=== PATIENT | male | born 1970 | race Caucasian/White ===

== ENCOUNTER → 2024-03-18 15:21 | Outpatient (REF) | payer OTHER, SELFPAY | LOC: HWRAD 15:21 | PROVIDERS: ATTENDING PHYSICIAN Urology; FAMILY PHYSICIAN Family Medicine | DX: Z87.442 Personal history of urinary calculi (principal) | CPT/HCPCS: 74176 ==

== ENCOUNTER 2024-06-05 13:17 | Emergency (ER) | payer OTHER, SELFPAY ==
[2024-06-05 13:24] VITALS: BP 191/116
[2024-06-05 13:45] LABS: % Basophils 0.9 % (0-2); % Eosinophils 1.3 % (0-6); % Immature Granulocytes 0.2 % (0-0.5); % Lymphocytes 27.9 % (20.5-51.1); % Monocytes 10.2 % (1.7-9.3); % Neutrophils 59.5 % (42.2-75.2); Absolute Basophils 0.1 10^3/uL (0-0.2); Absolute Eosinophils 0.1 10^3/uL (0-0.7); Absolute Lymphocytes 1.8 10^3/uL (1.2-3.4); Absolute Monocytes 0.7 10^3/uL (0.1-0.6); Absolute Neutrophils 3.8 10^3/uL (1.4-6.5); Hematocrit 43.3 % (39.0-52.0); Hemoglobin 15.1 g/dL (13.0-18.0); Mean Corp Hgb Conc. 34.9 g/dL (33.0-37.0); Mean Corpuscular Volume 86.1 fL (80.0-94.0); Mean Platelet Volume 9.8 fL (7.4-10.4); Nucleated Red Blood Cells % 0 % (-); Platelet Count 257 10^3/uL (130-400); Red Blood Cell Count 5.03 10^6/uL (4.70-6.10); Red Cell Dist. Width 12.7 % (11.5-14.5); White Blood Cell Count 6.4 10^3/uL (4.8-10.8)
[2024-06-05 13:58] LABS: ALT (SGPT) 38 U/L (0-50); AST (SGOT) 37 U/L (17-59); Albumin 4.8 g/dl (3.5-5.0); Alkaline Phosphatase 117 U/L (38-126); Calcium 9.7 mg/dl (8.4-10.2); Carbon Dioxide 24 mmol/L (22-30); Chloride 102 mmol/L (98-107); Glucose 126 mg/dl (70-99); Potassium 4.1 mmol/L (3.5-5.1); Sodium 138 mmol/L (135-145); Total Bilirubin 0.6 mg/dl (0.2-1.3); Total Protein 7.4 g/dl (6.3-8.2); eGFR > 60.00
[2024-06-05 14:04] LABS: Blood Urea Nitrogen 18 mg/dl (9-20)
--- NOTE | 2024-06-05 17:21 | ED.GENMED ---
History of Present Illness
General
Chief Complaint: Blood Pressure Problem
Source: patient and spouse
Exam Limitations: none
Time Seen by Provider: 06/05/24 16:51
History of Present Illness
History of Present Illness:
54yoM with no significant past medical history presenting with his for evaluation of elevated blood pressure. Patient's has a blood pressure cuff at home and he randomly decided to check his blood pressure yesterday. Blood pressure was
elevated at 180/100 although he states the cough was acting 'wonky.' They decided to buy a new blood pressure cuff today and rechecked his blood pressure which was elevated at 197/119. They researched on [employer] and decided to come to the ED for
evaluation. Patient is asymptomatic at this time and denies any headache, visual changes, chest pain, shortness of breath, leg swelling. Patient was on blood pressure medication about 20 years ago. He last saw his PCP in January and blood pressure
was reportedly normal at that time.
Phy Exam
General Physical Exam
General Presentation: well appearing and no apparent distress
General age: appears stated age
General Skin: warm and dry
General Habitus: normal
General Mental: alert
ENT Exam
ENT Exam: normocephalic
Cardiovascular Exam
Cardiovascular Exam: regular rate/rhythm, no edema and no murmur
Pulmonary Exam
Pulmonary Exam: lungs clear, no respiratory distress, no rales, no crackles and no rhonchi
Neurological Exam
Neurological Exam: alert
[place] Coma Scale
Eye Opening: Spontaneous
Verbal Response: Oriented
Motor Response: Obeys Commands
GCS Total Score: 15
Skin Exam
Skin Exam: normal color and warm/dry
Psychiatric Exam
Psychiatric Exam: normal mood/affect
Course
Orders/Labs/Results
Orders:
Orders
06/05/24 13:18
EKG [Electrocardiogram (*1)] Urgent
Reason for Study: Hypertension, Benign
EKG- Treatment ONCE
06/05/24 13:34
Complete Blood Count/With Diff Urgent
Comprehensive Metabolic Panel Urgent
06/05/24 17:24
Amlodipine [Norvasc] 5 mg PO ONCE ONE
Abnormal Lab Results
06/05/24
13:34
Absolute Monos (auto) 0.7 H 10^3/uL
(0.1-0.6)
Monocytes % 10.2 H %
(1.7-9.3)
Glucose 126 H mg/dl
(70-99)
06/05/24 13:34
06/05/24 13:34
Vital Signs
Blood pressure: 177/112
Initial and Last Documented VS:
Initial Vital Signs
Temp Pulse Resp BP Pulse Ox
97.8 F 77 18 191/116 98
06/05/24 13:24 06/05/24 13:24 06/05/24 13:24 06/05/24 13:24 06/05/24 13:24
Last Documented Vital Signs
Temp Pulse Resp BP Pulse Ox
97.8 F 64 20 166/102 95
06/05/24 13:24 06/05/24 17:38 06/05/24 17:38 06/05/24 17:38 06/05/24 17:38
MDM/Problems Addressed
Differential Diagnosis Includes:
54yoM here with elevated blood pressure. He decided to check his BP yesterday and today at home which were both elevated. Currently asymptomatic without complaints. No headache, visual changes, chest pain. BP 191/116 in triage. Remainder of vitals
are normal. Exam is reassuring. Differential diagnosis includes but is not limited to: asymptomatic hypertension, hypertensive urgency
Labs and EKG obtained in triage. Labs overall unremarkable including normal renal function. No ischemic changes on EKG. Blood pressure improved to 166/102 without intervention. No signs of end organ dysfunction. No indication for hospitalization at
this time. Patient was started on 5mg amlodipine and given a 30 day supply. Patient advised to keep a BP log and f/u closely with his PCP. Strict ED return precautions discussed. He expressed understanding and is agreement with plan. He was
discharged in stable condition.
*EKG
Interpreted by ED Provider?: Yes
EKG Intrepretation Date: 06/05/24
Heart Rate: 82
Rate: normal
Rhythm: sinus
[place]: left axis deviation
Interval: normal interval
QRS Pattern: normal QRS
Ischemia: no ischemia
*Critical Care Note
Total Time (30-74mins, 75-104mins- exclusive of procedures): Not Applicable
ED Attending Note
-
Portions of this chart may have been created with voice recognition software.� Occasional wrong word or��sound alike� substitutions may have occurred due to the inherent limitations of voice recognition software.
Discharge Plan
Departure
Patient Disposition: Home (Routine Discharge)
Date of Disposition: 06/05/24
Time of Disposition: 17:25
Patient with high blood pressure during this ER visit?: Yes
Discharge Problem:
Asymptomatic hypertension
Instructions: High Blood Pressure (DC), Amlodipine
Prescriptions:
New
amlodipine 5 mg tablet
5 mg PO DAILY Qty: 30 0RF
Referrals:
Jon Tan MD [Family Provider] -
Activity Restrictions/Additional Instructions:
Take amlodipine as prescribed. Check your blood pressure once daily and keep a log.
Please call tomorrow to schedule a follow-up appointment with your family doctor. Return to the ER with any worsening symptoms, severe headache, chest pain, new visual/neurologic symptoms.
Interventions
Interventions:
*Risk Screen - Suicide Last Done: 06/05/24 13:24
*General Assessment Last Done: 06/05/24 13:24
*Neglect/Abuse Screening Last Done: 06/05/24 13:24
ED- Fall Risk Assessment Last Done: 06/05/24 17:45
*ED COVID-19 Vaccine History Last Done: 06/05/24 13:24
*Nursing Disposition Last Done: 06/05/24 17:45
ED- Cardiac Assessment Last Done: 06/05/24 17:37
ED- Neurological Assessment Last Done: 06/05/24 17:37
ED- Pulmonary Assessment Last Done: 06/05/24 17:37
Discharge Date and Time
Discharge Date/Time: 06/05/24 17:45
Print Language: DIVEHI
[2024-06-05] MEDS: NORVASC 5 MG PO (17:34)
[2024-06-05 17:37] VITALS: BMI 33.1
[2024-06-05 17:38] VITALS: BP 166/102
== END 2024-06-05 17:45 | disposition home or self-care (01) ==
LOC: EMR 13:17
PROVIDERS: Emergency Medicine; EMERGENCY PHYSICIAN Student in an Organized Health Care Education/Training Program; FAMILY PHYSICIAN Family Medicine
DX: I10 Essential (primary) hypertension (principal)
CPT/HCPCS: 99283; 80053; 85025; 93005

== ENCOUNTER 2024-06-06 22:28 | Emergency (ER) | payer OTHER, SELFPAY ==
[2024-06-06 22:33] VITALS: BP 197/136
[2024-06-06 22:36] VITALS: BMI 33.1
[2024-06-07 00:55] VITALS: BP 192/117; BP 195/120
--- NOTE | 2024-06-07 01:30 | ED.GENMED ---
History of Present Illness
General
Chief Complaint: Blood Pressure Problem
Source: patient and records
Exam Limitations: none
Time Seen by Provider: 06/07/24 00:56
Nursing documentation reviewed up to this point in time: agreed with
History of Present Illness
History of Present Illness:
54-year-old male returns with high blood pressure, seen here yesterday with high blood pressure without any symptoms EKG blood work discharged with amlodipine 5 told that he could have borderline high blood pressure previously never on meds, used
his 's blood pressure cuff around just out of curiosity found that his pressure was high took it several times in the next day or 2 continue to be high seen here yesterday in discharge, through the day continued to be 180-190/110-120
range, did have some mild headache, but no other symptoms 48 no chest pain or shortness of breath no fever or chills, took a dose of amlodipine in the ER and a dose at home drinks socially not excess non-smoker
Past History
Past History
ED Past Medical History: HTN
Social History
Tobacco: Non-smoker
Alcohol: Occasional
Drug: None
Personal:
Living: with family
Employment: Employed
Review of Systems
Review of Systems
All Other Systems: ROS reviewed and negative except as documented in HPI and ROS
Constitutional: Reports no symptoms
EENT: Reports no symptoms
Respiratory: Reports no symptoms
Cardiac: Reports no symptoms
ABD/GI: Reports no symptoms
: Reports no symptoms
Musculoskeletal: Reports no symptoms
Skin: Reports no symptoms
Neurological: Reports no symptoms
Phy Exam
Physical Exam
Physical Exam:
Physical Exam
General: no apparent distress, not acutely ill
Neck: No jaundice
Heart: Regular
Lungs: no acute respiratory distress. clear bilaterally
Neuro: alert and oriented. no focal neurological deficits
Skin: no rash
Psychiatric: well kept. interactive and cooperative
Extremities: no edema
Course
Orders/Labs/Results
Orders:
Orders
06/07/24 01:23
Clonidine [Catapres] 0.1 mg PO NOW STA
Lisinopril [Zestril] 10 mg PO NOW STA
06/07/24 00:50
06/07/24 00:50
Vital Signs
Initial and Last Documented VS:
Initial Vital Signs
Temp Pulse Resp BP Pulse Ox
97.7 F 94 16 197/136 97
06/06/24 22:33 06/06/24 22:33 06/06/24 22:33 06/06/24 22:33 06/06/24 22:33
Last Documented Vital Signs
Temp Pulse Resp BP Pulse Ox
97.7 F 94 16 142/101 95
06/06/24 22:33 06/06/24 22:33 06/06/24 22:33 06/07/24 03:00 06/07/24 03:00
MDM/Problems Addressed
Differential Diagnosis Includes:
Asymptomatic hypertension accelerated hypertension, hypertensive urgency, hypertensive emergency, anxiety
MDM/Problems Addressed:
High blood pressure
Chronic conditions affecting care:
New onset
Acute Exacerbation and/or Progression of Chronic Illness:
New onset hypertension
*Pulse Oximetry
Patient hypoxic: no
*Critical Care Note
Total Time (30-74mins, 75-104mins- exclusive of procedures): Not Applicable
Update Note
Update Note:
Update patient had a fairly extensive workup within 24 to 36 hours, has no chest pain or shortness of breath, had a mild headache earlier but none now will repeat creatinine noted EKG noted will start him on an KOLTON inhibitor,, dose of clonidine
trending his pressure down a bit here, uptitrate his meds will require outpatient follow-up, with the caveat that amlodipine has a slow onset
3 AM, blood pressure improved prior to his medications, has been in our since he had his meds we will see how his trend goes patient continues to be asymptomatic
bp 142/101
ED Attending Note
-
Portions of this chart may have been created with voice recognition software.� Occasional wrong word or��sound alike� substitutions may have occurred due to the inherent limitations of voice recognition software.
Discharge Plan
Departure
Patient Disposition: Home (Routine Discharge)
Date of Disposition: 06/07/24
Time of Disposition: 03:10
Patient with high blood pressure during this ER visit?: Yes
Condition: Good
Discharge Problem:
Hypertension
Instructions: High Blood Pressure (DC)
Prescriptions:
New
lisinopril 10 mg tablet
10 mg PO DAILY Qty: 30 3RF
lisinopril 5 mg tablet
5 mg PO DAILY Qty: 30 0RF
No Action
amlodipine 5 mg tablet
5 mg PO DAILY Qty: 30 0RF
Referrals:
Jon Tan MD [Family Provider] -
Activity Restrictions/Additional Instructions:
Continue amlodipine 5 mg a day
Start lisinopril 5 mg a day
Take your blood pressure once in the morning and write it down once in the evening
Interventions
Interventions:
*Risk Screen - Suicide Last Done: 06/06/24 22:33
*General Assessment Last Done: 06/06/24 22:33
*Neglect/Abuse Screening Last Done: 06/06/24 22:33
ED- Cardiac Assessment Last Done: 06/07/24 02:09
ED- Neurological Assessment Last Done: 06/07/24 02:09
ED- Pulmonary Assessment Last Done: 06/07/24 02:09
Discharge Date and Time
Print Language: MALAY
[2024-06-07] MEDS: ZESTRIL 10 MG PO (01:48)
[2024-06-07] MEDS: CATAPRES 0.1 MG PO (01:48)
[2024-06-07 01:49] VITALS: BP 168/107
[2024-06-07 03:00] VITALS: BP 142/101
== END 2024-06-07 03:35 | disposition home or self-care (01) ==
LOC: EMR 22:28
PROVIDERS: EMERGENCY PHYSICIAN Emergency Medicine; FAMILY PHYSICIAN Family Medicine
DX: I10 Essential (primary) hypertension (principal); R51.9 Headache, unspecified; Z87.442 Personal history of urinary calculi
CPT/HCPCS: 99283

== ENCOUNTER 2024-09-14 04:22 | Emergency (ER) | payer OTHER, SELFPAY ==
[2024-09-14] VITALS (8 sets, daily range): BP systolic 117–147; BP diastolic 80–94; PULSE 52–66; BMI 28.7
[2024-09-14 05:16] LABS: % Eosinophils 2.2 % (0-6); % Immature Granulocytes 0.3 % (0-0.5); % Lymphocytes 38.6 % (20.5-51.1); % Monocytes 9.9 % (1.7-9.3); Absolute Basophils 0.1 10^3/uL (0-0.2); Absolute Eosinophils 0.2 10^3/uL (0-0.7); Absolute Lymphocytes 2.6 10^3/uL (1.2-3.4); Absolute Monocytes 0.7 10^3/uL (0.1-0.6); Absolute Neutrophils 3.2 10^3/uL (1.4-6.5); Hematocrit 40.7 % (39.0-52.0); Hemoglobin 14.1 g/dL (13.0-18.0); Mean Corp Hgb Conc. 34.6 g/dL (33.0-37.0); Mean Corpuscular Hgb 30.3 pg (27.0-31.0); Mean Corpuscular Volume 87.5 fL (80.0-94.0); Mean Platelet Volume 9.8 fL (7.4-10.4); Nucleated Red Blood Cells % 0 % (-); Platelet Count 239 10^3/uL (130-400); Red Blood Cell Count 4.65 10^6/uL (4.70-6.10); Red Cell Dist. Width 12.8 % (11.5-14.5); White Blood Cell Count 6.7 10^3/uL (4.8-10.8)
[2024-09-14 05:31] LABS: ALT (SGPT) 29 U/L (0-50); AST (SGOT) 27 U/L (17-59); Albumin 4.4 g/dl (3.5-5.0); Alkaline Phosphatase 134 U/L (38-126); Blood Urea Nitrogen 22 mg/dl (9-20); Calcium 9.3 mg/dl (8.4-10.2); Carbon Dioxide 26 mmol/L (22-30); Chloride 104 mmol/L (98-107); Estimated Creatinine Clearance 110 ml/min; Glucose 128 mg/dl (70-99); Potassium 3.9 mmol/L (3.5-5.1); Sodium 141 mmol/L (135-145); Total Bilirubin 0.4 mg/dl (0.2-1.3); Total Protein 6.7 g/dl (6.3-8.2); eGFR > 60.00
[2024-09-14 05:44] LABS: NT-proBNP < 20.0 pg/ml; Troponin I < 0.012 ng/ml
--- NOTE | 2024-09-14 05:56 | ED.GENMED ---
History of Present Illness
<Frankie Díaz MD, Resident - Last Filed: 09/14/24 06:49>
General
Chief Complaint: Fainting/Passed Out
Time Seen by Provider: 09/14/24 04:56
History of Present Illness
History of Present Illness:
This is a 54-year-old male with past medical history of hypertension who presents to ED after an episode of syncope with fall. Patient reports early this morning he was trying to get up from his bed to use the restroom and suddenly passed out,
fell and hit his head on the bench upon standing. He denies confusion prior to falling. Episode lasted less than 5 minutes. He denied any warning signs including nausea, spinning sensation dizziness prior to the fall. No one witnessed the fall.
Patient denied confusion upon waking up and was aware of his surrounding within seconds. He admits history of postural hypotension that occurs after exercise, and getting up too quickly from a sitting position. He was recently started on
hypertensive medications in June including lisinopril and amlodipine, and he states his symptoms have continued to worsen since then.
In addition patient complains of right temporal pain numbness of the right upper lip secondary to hitting his head on the table. Also admits to right thigh discomfort secondary to the fall. He denies chest pain, shortness of breath, palpitations.
He denies history of seizures. Patient reports baseline pulse in the 40s. Reports history of postural hypotension in Father.
Past History
<Frankie Díaz MD, Resident - Last Filed: 09/14/24 06:49>
Past History
ED Past Medical History: HTN
Social History
Tobacco: Non-smoker
Alcohol: Occasional
Drug: None
Personal:
Living: with family
Employment: Employed
Review of Systems
<Frankie Díaz MD, Resident - Last Filed: 09/14/24 06:49>
Review of Systems
All Other Systems: ROS reviewed and negative except as documented in HPI and ROS
Phy Exam
<Frankie Díaz MD, Resident - Last Filed: 09/14/24 06:49>
General Physical Exam
General Presentation: well appearing and mild distress (Secondary to right thigh discomfort)
ENT Exam
ENT Exam: EOMI
Cardiovascular Exam
Cardiovascular Exam: regular rate/rhythm, no edema and no murmur
Pulmonary Exam
Pulmonary Exam: lungs clear, no respiratory distress and no crackles
Gastrointestinal Exam
Gastrointestinal Exam: normal bowel sounds, non tender, soft and non distended
Course
<Frankie Díaz MD, Resident - Last Filed: 09/14/24 06:49>
Orders/Labs/Results
Orders:
Orders
09/14/24 04:44
Electrocardiogram (*1) Urgent
Reason for Study: Other
Other Reason for Exam: Respiratory Distress
Cardiac Monitoring- Treatment ONCE
EKG- Treatment ONCE
IV Insert/Care/Rem.- Treatment PRN
CR Chest - 2 Views Urgent
Comment:
Reason For Exam: respiratory distress
O2 Therapy [RESP] Urgent
Titrate/Wean O2 to maintain O2 sat greater than (%): 93
Special Instructions: TO MAINTAIN CONTINUOUS O2 SATS >/= 93%
Pulse Ox/cont/shift [RESP] Urgent
Quantity: 1
Special Instructions: continuous pulse ox
09/14/24 04:56
CT Head W/o Iv Contrast Urgent
Comment:
Reason For Exam: fall, loss of consciousness
09/14/24 05:06
Complete Blood Count/With Diff Urgent
Comprehensive Metabolic Panel Urgent
NT-proBNP Urgent
Troponin I Urgent
09/14/24 05:59
Orthostatic VS- Treatment ONCE
09/14/24 06:18
CT Orbits W/o Iv Contrast Urgent
Comment:
Reason For Exam: orbital floor fracture on ct scan head
Abnormal Lab Results
09/14/24
05:06
RBC 4.65 L 10^6/uL
(4.70-6.10)
Absolute Monos (auto) 0.7 H 10^3/uL
(0.1-0.6)
Monocytes % 9.9 H %
(1.7-9.3)
BUN 22 H mg/dl
(9-20)
Glucose 128 H mg/dl
(70-99)
Alkaline Phosphatase 134 H U/L
(38-126)
09/14/24 05:06
09/14/24 05:06
Vital Signs
Initial and Last Documented VS:
Initial Vital Signs
Temp Pulse Resp BP Pulse Ox
98.3 F 52 14 147/94 98
09/14/24 04:24 09/14/24 04:24 09/14/24 04:24 09/14/24 04:24 09/14/24 04:24
Last Documented Vital Signs
Temp Pulse Resp BP Pulse Ox
98.3 F 52 14 147/94 96
09/14/24 04:24 09/14/24 04:24 09/14/24 04:24 09/14/24 04:24 09/14/24 05:19
<Sherlyn Cardenas, DO - Last Filed: 09/14/24 07:33>
Orders/Labs/Results
Orders:
Orders
09/14/24 04:44
Electrocardiogram (*1) Urgent
Reason for Study: Other
Other Reason for Exam: Respiratory Distress
Cardiac Monitoring- Treatment ONCE
EKG- Treatment ONCE
IV Insert/Care/Rem.- Treatment PRN
CR Chest - 2 Views Urgent
Comment:
Reason For Exam: respiratory distress
O2 Therapy [RESP] Urgent
Titrate/Wean O2 to maintain O2 sat greater than (%): 93
Special Instructions: TO MAINTAIN CONTINUOUS O2 SATS >/= 93%
Pulse Ox/cont/shift [RESP] Urgent
Quantity: 1
Special Instructions: continuous pulse ox
09/14/24 04:56
CT Head W/o Iv Contrast Urgent
Comment:
Reason For Exam: fall, loss of consciousness
09/14/24 05:06
Complete Blood Count/With Diff Urgent
Comprehensive Metabolic Panel Urgent
NT-proBNP Urgent
Troponin I Urgent
09/14/24 05:59
Orthostatic VS- Treatment ONCE
09/14/24 06:18
CT Orbits W/o Iv Contrast Urgent
Comment:
Reason For Exam: orbital floor fracture on ct scan head
Abnormal Lab Results
09/14/24
05:06
RBC 4.65 L 10^6/uL
(4.70-6.10)
Absolute Monos (auto) 0.7 H 10^3/uL
(0.1-0.6)
Monocytes % 9.9 H %
(1.7-9.3)
BUN 22 H mg/dl
(9-20)
Glucose 128 H mg/dl
(70-99)
Alkaline Phosphatase 134 H U/L
(38-126)
09/14/24 05:06
09/14/24 05:06
Vital Signs
Initial and Last Documented VS:
Initial Vital Signs
Temp Pulse Resp BP Pulse Ox
98.3 F 52 14 147/94 98
09/14/24 04:24 09/14/24 04:24 09/14/24 04:24 09/14/24 04:24 09/14/24 04:24
Last Documented Vital Signs
Temp Pulse Resp BP Pulse Ox
98.3 F 52 14 147/94 96
09/14/24 04:24 09/14/24 04:24 09/14/24 04:24 09/14/24 04:24 09/14/24 05:19
<Frankie Díaz MD, Resident - Last Filed: 09/14/24 06:49>
MDM/Problems Addressed
MDM/Problems Addressed:
54-year-old male with past medical history of hypertension presents to ER after an episode of syncope in the fall. EKG on presentation with sinus bradycardia. Laboratory unremarkable including a normal troponin. Evaluation with a CT scan of
the head showed no hemorrhage or other intracranial abnormalities. Although CT scan showed suspicion for right epidural floor fracture. Will order a CT scan of orbit to evaluate. In addition, will check orthostatics.
<Frankie Díaz MD, Resident - Last Filed: 09/14/24 06:49>
*Critical Care Note
Total Time (30-74mins, 75-104mins- exclusive of procedures): Not Applicable
ED Attending Note
<Frankie Díaz MD, Resident - Last Filed: 09/14/24 06:49>
-
Portions of this chart may have been created with voice recognition software.� Occasional wrong word or��sound alike� substitutions may have occurred due to the inherent limitations of voice recognition software.
<Sherlyn Cardenas DO - Last Filed: 09/14/24 07:33>
ED Attending Note
Patient seen and examined by attending physician: Yes
I performed a history and physical exam of patient and discussed management with resident, I reviewed resident's note and agree with documented findings and plan of care.: Yes
ED Attending Note:
54-year-old gentleman with history of hypertension newly diagnosed in June was started on amlodipine as well as lisinopril. Since then he has been monitoring his blood pressure which is generally well-controlled 1 teens to 130s but occasionally
noted low blood pressures 105 systolic.
Tonight he got up out of bed to go to the bathroom, became lightheaded and proceeded to pass out striking the right side of his face he believes on a dresser.
He complains of pain right cheek, mild numbness right upper lateral lip. He denies dental pain or injury. No neck pain. No weakness no numbness.
HEENT: Mild tenderness to palpation with mild depressive deformity right mid zygoma. Mild to moderate tenderness right maxilla. Extraocular muscles intact.
Neck is supple without tenderness, full range of motion without difficulty or pain.
Heart is regular rate and rhythm. No chest wall tenderness.
Lungs are clear to auscultation. Respirations are easy nonlabored.
Awake alert and oriented x 3. No focal neurodeficits. Gait is steady.
Concern for vasovagal episode. Concern for overcorrection of hypertension.
Concern for closed head injury, facial fracture.
CT of the head shows no acute intracranial traumatic findings but concern for potential inferior orbital fracture. Will check CT facial bones. No evidence of blowout fracture on exam.
EKG shows sinus bradycardia. Patient exercises on a regular basis and states his heart rate is generally in the 40s to 50s.
Labs are unremarkable.
Will check orthostatic vital signs.
Will likely require adjustment in hypertensive medications.
07:15
Orthostatic vital signs are negative but systolic blood pressure remains in the low 120s.
Will plan to decrease lisinopril to 5 mg daily. Continue amlodipine 5 mg.
Patient has an appointment scheduled with his PCP for follow-up on Monday, [address] facial bones reveals mildly displaced fracture lateral wall of the right maxillary sinus with accompanying small to moderate-sized right maxillary sinus air-fluid levels. Mildly displaced fracture of the right zygomatic arch.
Will place on short course of antibiotic for infection prevention.
Will refer to ENT for follow-up.
Discussed importance of remaining well-hydrated on a daily basis.
Avoid rapid standing.
Discharge Plan
Departure
Discharge Problem:
Postural hypotension
Prescriptions:
New
amoxicillin 875 mg tablet
875 mg PO BID Qty: 10 0RF
Rx Instructions:
total of 5 days
No Action
amlodipine 5 mg tablet
5 mg PO DAILY Qty: 30 0RF
lisinopril 10 mg tablet
10 mg PO DAILY Qty: 30 3RF
sertraline 25 mg Tablet
25 mg PO DAILY
Referrals:
Jon Tan MD [Family Provider] -
Edison Velásquez MD [Active] - Follow up in 1 week (see ENT for mildly displaced fracture of the lateral wall of the right maxillary sinus)
Interventions
Interventions:
*Risk Screen - Suicide Last Done: 09/14/24 04:24
*General Assessment Last Done: 09/14/24 05:14
*Neglect/Abuse Screening Last Done: 09/14/24 05:14
*ED- Fall Risk Assessment Last Done: 09/14/24 05:14
*ED COVID-19 Vaccine History Last Done: 09/14/24 05:14
ED- Cardiac Assessment Last Done: 09/14/24 05:19
ED- Neurological Assessment Last Done: 09/14/24 05:19
Discharge Date and Time
Print Language: HAITIAN
== END 2024-09-14 07:32 | disposition home or self-care (01) ==
LOC: EMR 04:22
PROVIDERS: EMERGENCY PHYSICIAN Emergency Medicine; FAMILY PHYSICIAN Family Medicine
DX: I95.1 Orthostatic hypotension (principal); I10 Essential (primary) hypertension
CPT/HCPCS: 99284; 70450; 70480; 71046; 80053; 83880; 84484; 85025; 93005